=== PATIENT | male | born 1930 | race Caucasian/White ===

== ENCOUNTER 2017-02-07 21:44 | Observation (INO) | payer MEDICARE, OTHER ==
[~2017-02-07] VITALS: Ht 170.2 cm; Wt 70.1 kg
[~2017-02-07 21:44] MED LIST: CALCIUM600 MG PO; CERTAVITE SR-AN1 TAB PO; FLONASE16 GM NASBOTH; HALFPRIN81 MG PO; PROTONIX40 MG PO; SOTALOL80 MG PO; VITAMIN D31000 UNI1 PO; XALATAN 0.005%2.5 ML EYEBOTH; ZYRTEC10 MG PO
[2017-02-07] MEDS ORDERED: COZAAR50 MG PO (23:03)
[2017-02-07] MEDS ORDERED: REGLAN5 MG PO (23:04)
[2017-02-07] MEDS ORDERED: SPIRIVA18 MCG INH (23:04)
[2017-02-07] MEDS ORDERED: VENTOLIN HFA18 GM INH (23:05)
[2017-04-29] MEDS ORDERED: KEPPRA250 MG PO (00:45)
== END 2017-02-08 09:55 | disposition short-term general hospital (02) ==
LOC: ER 21:44 → RT 21:45 → ER 21:45 → OBS 23:30 → IP 23:30
PROVIDERS: ADMIT Family Medicine
DX: G45.9 Transient cerebral ischemic attack, unspecified (principal); R56.9 Unspecified convulsions; I49.9 Cardiac arrhythmia, unspecified; J44.9 Chronic obstructive pulmonary disease, unspecified; I25.10 Atherosclerotic heart disease of native coronary artery without angina pectoris; I10 Essential (primary) hypertension; K21.9 Gastro-esophageal reflux disease without esophagitis; I95.1 Orthostatic hypotension; M19.90 Unspecified osteoarthritis, unspecified site; Z85.46 Personal history of malignant neoplasm of prostate; Z87.891 Personal history of nicotine dependence; Z88.2 Allergy status to sulfonamides; Z88.8 Allergy status to other drugs, medicaments and biological substances; Z79.82 Long term (current) use of aspirin; Z79.899 Other long term (current) drug therapy; Z95.0 Presence of cardiac pacemaker
CPT/HCPCS: G0378; G8978-GP; G8979-GP; G8980-GP

== ENCOUNTER → 2017-03-21 | Outpatient (CLI) | payer MEDICARE, OTHER ==
[~2017-03-21] MED LIST changes: +COZAAR50 MG PO; +KEPPRA250 MG PO; +REGLAN5 MG PO; +SPIRIVA18 MCG INH; +VENTOLIN HFA18 GM INH
== END | disposition short-term general hospital (02) ==
LOC: CLCARD 10:39
DX: I20.0 Unstable angina (principal); I49.5 Sick sinus syndrome; E78.5 Hyperlipidemia, unspecified; J44.9 Chronic obstructive pulmonary disease, unspecified; I51.7 Cardiomegaly; R94.31 Abnormal electrocardiogram [ECG] [EKG]; Z86.73 Personal history of transient ischemic attack (TIA), and cerebral infarction without residual deficits; Z95.0 Presence of cardiac pacemaker; Z86.79 Personal history of other diseases of the circulatory system; Z86.69 Personal history of other diseases of the nervous system and sense organs